=== PATIENT | female | born 1960 | race Hispanic/Latino ===

== ENCOUNTER 2017-11-23 20:37 | Emergency (ER) | payer SELFPAY ==
[2017-11-23] MEDS ORDERED: LIDOCAINE HCL 2% 20ML ONE (21:21)
[2017-11-23] MEDS ORDERED: TETANUS/DIPHTHERIA TOXOID [ADULT] 0.5 ML VIAL IM ONE (22:17)
== END 2017-11-23 22:25 | disposition home or self-care (01) ==
LOC: EDH 20:37
DX: S51.811A Laceration without foreign body of right forearm, initial encounter (principal); I10 Essential (primary) hypertension; E11.9 Type 2 diabetes mellitus without complications; X58.XXXA Exposure to other specified factors, initial encounter; Y93.89 Activity, other specified; Y92.098 Other place in other non-institutional residence as the place of occurrence of the external cause; Y99.8 Other external cause status
CPT/HCPCS: 12032; 90471; 90714; 99284; J3490